=== PATIENT | female | born 1980 ===

== ENCOUNTER 2021-12-16 17:56 | Emergency (ER) | payer BC ==
[2021-12-16] MEDS ORDERED: Acetaminophen/oxyCODONE 325-5 MG Tab PO ONE (17:57)
[2021-12-16] MEDS ORDERED: Fluconazole 100 MG Tab PO ONE (17:57)
[2021-12-16] MEDS ORDERED: Bacitracin Oint 1 GM U/D Packet TOP ONE ×2 (18:18→19:09)
[2021-12-16] MEDS ORDERED: Diphtheria,Pertussis(Acell),Tetanus Vaccine 0.5 ML Syringe IM ONE (18:18)
[2021-12-16] MEDS ORDERED: Lidocaine 1% 30 ML SDV INJECT ONE (18:18)
[2021-12-16] MEDS ORDERED: HYDROmorphone 1 MG/ML Syringe IVPUSH ONE (18:29)
[2021-12-16] MEDS ORDERED: Ondansetron 4 MG/2 ML SDV IVPUSH ONE (18:39)
[2021-12-16] MEDS ORDERED: Ondansetron 4 MG/2 ML SDV ONE (18:40)
[2021-12-16] MEDS ORDERED: cefTRIAXone 1 GM, Lidocaine 1% 2.1 ML IM ONE ×2 (19:41)
[2021-12-16] MEDS ORDERED: Cephalexin 500 MG Cap PO ONE (19:46)
[2021-12-16] MEDS ORDERED: Fluconazole 100 MG Tab ONE (20:04)
[2021-12-16] MEDS ORDERED: Acetaminophen/oxyCODONE 325-5 MG Tab ONE (20:07)
[2021-12-18] MEDS ORDERED: cefTRIAXone 1 GM in Sodium Chloride 0.9% 50 ML IV ONE (15:00)
== END 2021-12-16 20:50 | disposition home or self-care (01) ==
LOC: DL.ED 17:56
DX: S51.011A Laceration without foreign body of right elbow, initial encounter (principal); S41.111A Laceration without foreign body of right upper arm, initial encounter; S71.011A Laceration without foreign body, right hip, initial encounter; S31.811A Laceration without foreign body of right buttock, initial encounter; S31.113A Laceration without foreign body of abdominal wall, right lower quadrant without penetration into peritoneal cavity, initial encounter; Z23 Encounter for immunization; W22.09XA Striking against other stationary object, initial encounter
CPT/HCPCS: 12002; 71045; 73070-RT; 90471; 90715; 96365; 96375; 99284-25; A9270-GY; J1170; J2405